=== PATIENT | male | born 1985 | race Caucasian/White ===

== ENCOUNTER → 2017-03-20 | Outpatient (CLI) | payer BC | LOC: COL.RAD 08:08 | DX: K76.0 Fatty (change of) liver, not elsewhere classified (principal) ==

== ENCOUNTER → 2018-10-01 | Outpatient (CLI) | payer BC | LOC: COL.RAD 09:10 | DX: K76.0 Fatty (change of) liver, not elsewhere classified (principal); K82.4 Cholesterolosis of gallbladder ==

== ENCOUNTER → 2019-10-05 | Outpatient (CLI) | payer BC | LOC: COL.RAD 09:23 | DX: K75.81 Nonalcoholic steatohepatitis (NASH) (principal); K82.4 Cholesterolosis of gallbladder ==

== ENCOUNTER → 2020-10-10 | Outpatient (CLI) | payer BC | LOC: COL.RAD 07:23 | DX: K75.81 Nonalcoholic steatohepatitis (NASH) (principal); K82.4 Cholesterolosis of gallbladder ==

== ENCOUNTER → 2021-10-07 | Outpatient (CLI) | payer BC | LOC: COL.RAD 06:53 | DX: K76.0 Fatty (change of) liver, not elsewhere classified (principal); K82.4 Cholesterolosis of gallbladder; R74.8 Abnormal levels of other serum enzymes; K59.00 Constipation, unspecified ==